=== PATIENT | female | born 1965 ===

== ENCOUNTER 2018-02-23 05:23 | Day surgery (SDC) | payer OTHER ==
[~2018-02-23 05:23] MED LIST: GRALISE300 MG PO; NABUMETONE750 MG PO; PROTONIX20 MG PO; SYNTHROID88 MCG PO; [UNRECOGNIZED DRUG - OTHER] PO
== END 2018-02-23 10:00 | disposition home or self-care (01) ==
LOC: CIR.AMB 05:23
DX: M65.842 Other synovitis and tenosynovitis, left hand (principal); M24.132 Other articular cartilage disorders, left wrist